=== PATIENT | male | born 1960 | race Caucasian/White ===

== ENCOUNTER → 2017-05-22 13:34 | Outpatient (CLI) | payer BC, SELFPAY | PROVIDERS: PCP Family Medicine; Visit Provider Family Medicine | DX: R60.0 Localized edema (principal) | CPT/HCPCS: 93005 ==

== ENCOUNTER → 2017-05-29 12:00 | Outpatient (CLI) | payer BC, SELFPAY ==
--- NOTE | 2017-05-29 12:06 | NM_ITS ---
History and Indications: Obesity, hypertension, hyperlipidemia, family history and shortness of breath Procedure: Patient exercised on Evan protocol 6 minutes, resting heart rate was 69 bpm resting blood pressure 166/87, with exercise maximum heart rate achieved was 142 bpm which is equal to 86% of the maximum predicted heart rate and a blood pressure was 244 /100. Test was started due to shortness of breath patient denied any complained of chest pain, patient has adequate exercise capacity achieved 7mets of workload on treadmill, the blood pressure response to exercise was hypertensive. Electrocardiogram: Resting electrocardiogram showed sinus rhythm, with exercise, there is less than 1.[address] segment depression noted from the baseline EKG. The EKG portion of the exercise Myoview is negative for ischemia. Cardiac stress and resting SPECT images: Cardiac stress and rest SPECT images were obtained using technetium 99 Myoview 10.3 mCi at rest and 31.7 mCi at stress, gated SPECT further analysis of segmental wall motion and calculation of the ejection fraction also done. Cardiac stress and rest images show mild decreased tracer activity in the wall With normal contractility in the gated SPECT is likely secondary to soft tissue attenuation, no reversible ischemia seen. Computer derived ejection fraction is 48% with no obvious regional wall motion abnormality, right ventricle is mildly enlarged with normal contractility. Conclusion: 1. The EKG portion of the exercise Myoview is negative for ischemia patient has adequate exercise capacity achieved 7mets of workload on treadmill, the blood pressure response to exercise was hypertensive, there was no exercise-induced chest discomfort. 2. No obvious scintigraphic evidence of reversible ischemia seen, computer derived ejection fraction is 48% with no obvious regional wall motion abnormality, right ventricle is mildly enlarged with normal contractility.
--- NOTE | 2017-05-29 14:52 | HMH.ITSHM ---
inhaler amlodipine furosemide omeprazole prvastatin lisinopril asa' vit stool softner bystolic
== END ==
PROVIDERS: Family Provider Family Medicine; PCP Family Medicine; Visit Provider Family Medicine
DX: R07.9 Chest pain, unspecified (principal)
CPT/HCPCS: 78452; 93017; A9502

== ENCOUNTER → 2017-06-24 15:10 | Outpatient (CLI) | payer BC, SELFPAY ==
--- NOTE | 2017-06-24 | CA_ITS ---
PROCEDURE: 2-D M-mode and color Doppler study INDICATIONS FOR THE TEST: Chest pain COPD Heart Murmur Tobacco Smokingex Palpitations Fatigue+ Syncope Edema+ Hypertension+Diabetes Mellitus Rheumatic Fever SOB+DIA Obesity Hyperlipidemia+ Family History HD+ Additional History PATIENT INFORMATION HEIGHT: 67 WEIGHT: 280 GENDER: Male B/P: 150/90 2-D/M-MODE INTERPRETATION: 2-D MEASUREMENTS OBSERVED VALUES IN CMS Right Ventricular Dimension (RVDd) 3.0 Interventricular Septum (Thickness)(IVsd) 1.3 Left Ventricular Internal Dimensions(LVIDd) 4.9 Left Ventricular Posterior Wall (Thickness)(LVPWd) 1.3 Aortic Root 3.1 Aortic Cusp Separation 2.2 Left Atrial Dimensions (LAD) 4.3 2D 1. Left atrium is mildly enlarged, left ventricle is normal size, there is mild concentric left ventricular hypertrophy, visually estimated ejection fraction 55% with no obvious regional wall motion abnormality. 2. The right atrium and right ventricle are mildly enlarged with normal contractility. 3. The aortic valve is minimally thickened and fibrosed. 4. The mitral and tricuspid valve leaflets are minimally thickened. 5. The pulmonic valve is poorly visualized. 6. No significant pericardial effusion noted. DOPPLER INTERROGATION: Doppler interrogation of the aortic, mitral and tricuspid valvular presence of mild mitral and tricuspid regurgitation, tricuspid and jet velocity is insufficient for calculation of the right ventricular systolic pressure, grade 1 diastolic dysfunction seen with tissue Doppler evidence of raised left atrial pressure. CONCLUSION: 1. Mildly enlarged left atrium, normal left ventricular size, mild concentric left ventricular hypertrophy, visually estimated ejection fraction 55% with no obvious regional wall motion abnormality, grade 1 diastolic dysfunction seen with tissue Doppler evidence of raised left atrial pressure. 2. Mildly enlarged right ventricle with normal contractility. 3. Mild mitral and tricuspid regurgitation 4. No significant pericardial effusion noted.
== END ==
PROVIDERS: Family Provider Family Medicine; PCP Family Medicine; Visit Provider Family Medicine
DX: R94.30 Abnormal result of cardiovascular function study, unspecified (principal)
CPT/HCPCS: 93306

== ENCOUNTER → 2018-01-15 07:32 | Outpatient (CLI) | payer BC, SELFPAY ==
--- NOTE | 2018-01-15 08:06 | AS_ITS ---
Renal Arterial Duplex Indications: 405.91 Unspecified renovascular hypertension. IMPRESSIONS 1. The right renal artery appears normal. 2. The left renal artery appears normal. Complete renal arterial duplex. Duplex scan and Doppler flow study including spectral analysis, color and aguiar scale imaging. Height: Height: 170.2cm. Height: 67in. Weight: Weight: 124.7kg. Weight: 274.4lb. Body mass index: BMI: 43.1kg/m^2. Body surface area: BSA: 2.49m^2. Location: Vascular laboratory. Patient status: Outpatient. Findings: Proximal abd. aorta diameter: 1.7cm. Cyst in the right lower pole cortex. Dimensions: 2cm (L)x 2cm (AP D). Tables: Arterial flow: + +--------+--------+ Location V sys V ed + +--------+--------+ Right renal - proximal 149cm/s 50.7cm/s + +--------+--------+ Right renal - mid 102cm/s 44.1cm/s + +--------+--------+ Right renal - distal 94.7cm/s 31.6cm/s + +--------+--------+ Left renal - proximal 123cm/s 34.5cm/s + +--------+--------+ Left renal - mid 151cm/s 47.4cm/s + +--------+--------+ Left renal - distal 89.7cm/s 25.1cm/s + +--------+--------+ Rt renal-origin 137cm/s 44.3cm/s + +--------+--------+ Lt renal-origin 116cm/s 26.2cm/s + +--------+--------+ Abdominal aorta-prox 121cm/s -------- + +--------+--------+ Renal anatomy: + +------+-----+ Left Right + +------+-----+ Long axis 13.2cm 15cm + +------+-----+ Short axis 8.1cm 7.1cm + +------+-----+ Velocity ratios: + +-----+ V sys + +-----+ Right renal/aortic 1.2 + +-----+ Left renal/aortic 1.2 + +-----+ (Report amended ) Electronically signed by: Adan Prabhakar [id number]
== END ==
PROVIDERS: PCP Family Medicine; Visit Provider Emergency Medicine
DX: I10 Essential (primary) hypertension (principal)
CPT/HCPCS: 93976

== ENCOUNTER → 2018-01-19 15:35 | Outpatient (CLI) | payer BC, SELFPAY | PROVIDERS: PCP Family Medicine; Visit Provider Emergency Medicine | DX: G47.33 Obstructive sleep apnea (adult) (pediatric) (principal); I10 Essential (primary) hypertension; R06.83 Snoring | CPT/HCPCS: 95806 ==

== ENCOUNTER → 2018-02-03 08:25 | Outpatient (CLI) | payer BC, SELFPAY ==
--- NOTE | 2018-02-03 08:28 | MR_ITS ---
MR shoulder LT wo con HISTORY:Left shoulder pain with weakness in the arm ITS.REASON: LEFT SHOULDER PAIN ORDERING PHYSICIAN: Anitha Coello MD PATIENT AGE: 57 years Comparison: None TECHNIQUE: Standard multiplanar multiecho sequences are performed without contrast. FINDINGS: There are bony hypertrophic changes of the acromioclavicular joint with low-lying acromion with resultant subacromial stenosis of approximately 5 mm. The acromioclavicular hypertrophy also causes some impingement upon the musculotendinous junction of the supraspinatus tendon. There is a full-thickness tear involving the distal aspect of the supraspinatus tendon at the insertion on the greater tuberosity. The musculotendinous fibers do not appear retracted. Some fibers may be intact within posterior aspect of the supraspinatus tendon. That part of the tendon fibers thickened with increased T2 signal. The infraspinatus tendon appears intact with some mild tendinopathy/tendinosis. The teres minor tendon is unremarkable. There is also thickening with increased T2 signal of the subscapularis tendon. Bicipital tendon is in place. No obvious labral tear. IMPRESSION: 1. Full-thickness tear involving the anterior and distal aspect of the supraspinatus tendon without musculotendinous retraction. 2. Acromioclavicular arthropathy with subacromial stenosis. 3. Tendinopathy/tendinosis of the subscapularis and infraspinatus tendons.
== END ==
PROVIDERS: PCP Family Medicine; Visit Provider Emergency Medicine
DX: M25.512 Pain in left shoulder (principal)
CPT/HCPCS: 73221

== ENCOUNTER → 2018-02-16 14:56 | Outpatient (CLI) | payer BC, SELFPAY ==
--- NOTE | 2018-02-16 14:59 | XR_ITS ---
XR shoulder LT min 2V Ordering Physician: Huyen Gaspar MD Patient Age: 57 years: Male HISTORY: ITS.REASON: Lt shoulder tearRCT TECHNIQUE: 4 views left shoulder. AP, Y view and axillary COMPARISON :MRI shoulder 02/03/2018 FINDINGS . The humeral head and neck intact with some only note of some minor degenerative, slight irregularity and slight accentuated minor focal concavity the superior base of the humeral head, which may reflect impingement. This Is just beneath the tip of acromion and may correspond with the rotator cuff tear seen on recent MR. The glenohumeral joint is intact. Subtle downward sloping of the acromion on the frontal projection. Scapula unremarkable. IMPRESSION: Left shoulder intact with minor observations.. Glenohumeral joint is intact. Noted Minor observations as in text- which may reflect subtle impingement changes upon superior base of humeral head
== END ==
PROVIDERS: PCP Family Medicine; Visit Provider Orthopaedic Surgery
DX: M25.512 Pain in left shoulder (principal)
CPT/HCPCS: 73030

== ENCOUNTER → 2018-03-20 07:24 | Outpatient (CLI) | payer BC, SELFPAY ==
--- NOTE | 2018-03-20 07:39 | XR_ITS ---
XR chest 2V HISTORY: ITS.REASON: HYPERTENSION ORDERING PHYSICIAN: Huyen Gaspar MD PATIENT AGE: 57 years COMPARISON: None available FINDINGS: The cardiomediastinal silhouette and pulmonary vascularity are within normal limits. The lungs are clear without infiltrates, suspicious nodules, or pleural effusions. No acute bony abnormalities. IMPRESSION: Negative chest, no acute finding
[2018-03-20 08:19] LABS: Basophils # 0.1 K/mm3 (0-0.2); Basophils % 0.7 % (0.1-2.0); Eosinophils # 0.2 K/mm3 (0.0-0.4); Hematocrit 43.8 % (42.0-52.0); Hemoglobin 14.9 g/dL (14.1-18.0); Lymphocytes # 1.8 K/mm3 (0.7-4.5); Lymphocytes % 23.1 % (10-50); Mean Corpuscular Hemoglobin 30.6 pg (27.0-31.2); Mean Platelet Volume 7.2 fl (7.4-10.4); Monocytes # 0.7 K/mm3 (0.1-1.0); Monocytes % 8.4 % (1.7-9.3); Neutrophils # 5.3 K/mm3 (1.8-7.8); Neutrophils % 65.9 % (37.0-80.0); Platelet Count 281 K/mm3 (142-424); Red Blood Count 4.87 M/mm3 (4.60-6.20)
[2018-03-20 08:22] LABS: Prothrombin Time 10.3 seconds (9.4-11.8)
[2018-03-20 09:16] LABS: Alanine Aminotransferase 35 U/L (12-78); Albumin Level 3.7 gm/dL (3.4-5.0); Albumin/Globulin Ratio 1.3 (1.1-1.8); Alkaline Phosphatase 87 U/L (46-116); Anion Gap 12.9 mEq/L (5-15); Aspartate Amino Transferase 21 U/L (15-37); Bilirubin,Total 0.5 mg/dL (0.2-1.0); Blood Urea Nitrogen 12 mg/dL (7-18); Calcium 8.7 mg/dL (8.5-10.1); Carbon Dioxide 28 mmol/L (21.0-32.0); Chloride 102 mmol/L (98-107); Creatinine,Serum 0.71 mg/dL (0.70-1.30); Estimated Glomerular Filt Rate 115 ml/min (>60); GFR (African American) 139 ML/MIN (>60); Globulin 2.9 gm/dl (1.3-3.2); Glucose 105 mg/dL (74-106); Potassium 3.9 mmoL/L (3.5-5.1); Sodium 139 mmol/L (136-145); Total Protein,Serum 6.6 gm/dL (6.4-8.2)
== END ==
PROVIDERS: Visit Provider Orthopaedic Surgery
DX: Z01.818 Encounter for other preprocedural examination (principal); M75.102 Unspecified rotator cuff tear or rupture of left shoulder, not specified as traumatic
CPT/HCPCS: 36415; 71046; 80053; 85025; 85610; 93005

== ENCOUNTER → 2018-07-02 14:33 | Outpatient (CLI) | payer BC, SELFPAY ==
--- NOTE | 2018-07-02 14:36 | XR_ITS ---
XR shoulder LT min 2V HISTORY: Pain, follow-up surgery ITS.REASON: lt shoulder sx follow up DOS: 03/29/18 ORDERING PHYSICIAN: Huyen Gaspar MD PATIENT AGE: 58 years Comparison: 02/16/2018 FINDINGS: There is good alignment. There are 2 anchor screws along the humeral head. No acute fracture or dislocation. IMPRESSION: Status post shoulder surgery with no acute finding
== END ==
PROVIDERS: PCP Family Medicine; Visit Provider Orthopaedic Surgery
DX: M75.100 Unspecified rotator cuff tear or rupture of unspecified shoulder, not specified as traumatic (principal)
CPT/HCPCS: 73030

== ENCOUNTER 2018-07-29 15:00 | Outpatient (RCR) | payer BC, SELFPAY ==
--- NOTE | 2018-04-09 16:18 | HMH.OTOPEV ---
OT Inpatient Evaluation Rehab OT Outpatient Eval Start: 04/09/18 15:42 Freq: Status: Active Protocol: Document 04/09/18 15:42 RMARSHALL (Rec: [facility]/09/18 16:[id number] Electronically Signed By Anais Davis OT 04/09/18 15:42 Outpatient Therapy Subjective History Subjective History Pt is seen this date for initial OT evaluation for left shoulder. Pt reports over the last few years his left shoulder has become more painful while using the joint. Pt does not recall a specific injury causing the pain to begin. Pt required surgery on 03/29/18; arthroscopy consisted of biceps tenotomy, SAD, and RTC repair. Today patient presents with minimal pain at left shoulder, but does have decreased PROM/strength. Pt will continue to be seen twice a week in order to regain functional use of LUE. L Shoulder AROM STG Flex: 100 Abd: 110 ER: 55 IR: 55 L shoulder AROM LTG Flex: 160 Abd: 165 ER: 80 IR: 80 Chief Complaint Pain Weakness Symptom Type Ache Throb Sharp Symptoms Relieved By Nothing Symptoms Aggravated By Physical Activity Prior Functional Limitations None Current Functional Limitations Reaching Lifting Sleeping Recreation Activity Symptom Description Intermittent Activity Dependent Level of pain today (0-10) 3 Pain scale - at its best (0-10) 1 Pain scale - at its worst (0-10) 5 Shoulder/Elbow Eval Shoulder Objective Measurements Shoulder ROM Left Shoulder ROM Limitations Muscle Weakness Pain Shoulder Abduction Active Range of 60 degres Motion (degrees) Shoulder Abduction Passive Range of 110 degrees Motion (degrees) Shoulder
--- NOTE | 2018-06-24 16:08 | HMH.RHREAS ---
Rehab Reassessment Rehab OP Re-assessment Start: 06/24/18 15:56 Freq: Status: Active Protocol: Document 06/24/18 15:56 RMRAMAN (Rec: 06/24/18 16:08 RMARSHALL [id number]) Electronically Signed By Anais Davis OT 06/24/18 15:56 Rehab Re-assessment Subjective Subjective I have come a long way. Objective Objective Notes Pt continues to be seen once a week in order to engage in skilled OT sessions. Pt also engages in AROM and AAROM exercises; strengthening is being added. Pt is passively ranged in flexion, abduction, ER, and IR every time as well. Pt receives modalities such as e-stim in order to reduce pain/inflammation. Assessment Progress Assessment Progressing as Expected Assessment Notes Pt has demonstrated great improvement since initial evaluation. Pt's AROM and strength have both improved. Pt's pain has also decreased significantly. Pt has returned to work with restrictions. Pt is is consistent about attending every therapy session and completing HEP at home. Current L shoulder Flex: 145 degrees Abd: 135 degrees ER: 80 degrees IR: 65 degrees Current L shoulder MMT Flex: 4+ Abd: 4+ ER: 4+ IR: 4+ Patient goals met Pt has met all STG's Goals Not Met LTG Revised Goals Left shoulder AROM Goals Flex: 170 Abd: 170 ER: 80 IR: 80 L shoulder MMT Goals Flex: 5 Abd: 5 ER: 5 IR: 5 Plan Plan Continue with OT plan of care at this time Frequency of Therapy 1x a week Duration of therapy 4-6 more weeks Time and
== END 2018-07-29 15:05 | disposition home or self-care (01) ==
LOC: OT 15:00
PROVIDERS: Visit Provider Orthopaedic Surgery
DX: M75.122 Complete rotator cuff tear or rupture of left shoulder, not specified as traumatic (principal); M75.22 Bicipital tendinitis, left shoulder
CPT/HCPCS: 97014; 97110; 97140; 97164; 97166; G0283

== ENCOUNTER 2019-09-19 14:41 | Emergency (ER) | payer OTHER, SELFPAY ==
[2019-09-19 14:48] VITALS: BP 136/82; PULSE 71; RESP 16; TEMP 36.8; O2SAT 99; BMI 43.8
[2019-09-19 15:12] VITALS: BP 136/82; PULSE 71; RESP 16; TEMP 36.8; O2SAT 99; BMI 43.9
--- NOTE | 2019-09-19 16:23 | HMH.EDUTC ---
[facility] [place] Clinical Impression: Finger laceration Qualifiers: Encounter type: initial encounter Finger: thumb Damage to nail status: without damage Foreign body presence: without foreign body Laterality: left Qualified Code(s): S61.012A - Laceration without foreign body of left thumb without damage to nail, initial encounter Disposition: Home, Self-Care Condition on Discharge: Good Instructions: How to Care for a Laceration After Repair, DI for Laceration Repair, DI for Laceration Repair -- Simple Additional Instructions: You have required stitches today. Please read the following instructions so you know how to care for them: 1. Keep wound area dry for the first 24 hours. 2 May clean gently with mild soap and water, after 48 hours to prevent crusting over suture knots. 3. You may shower if your provider gives permission but do not take a bath until the skin is healed.. 4. Never leave a wet dressing or Band-Aid on your stitches as this allows bacteria to reach the area and may cause infection. Band-aids can cause the wound to sweat and not recommended to wear for long periods of time Watch for signs of infection: Increasing redness, tenderness or warmth around the suture site Unusual swelling around the site Appearance of pus around each suture or any red streaks Fever If you develop any of the above signs or symptoms of infection, Follow up with Family Physician immediately 5. Suture removal in __10-12__days 6. Return to [facility] or follow up with family doctor for removal. This can be done by any medical provider during regular hours on Thursday through Thursday, by appointment. Prescriptions: Amoxicillin/Potassium Clav [Augmentin 875-125 Tablet] 1 tab PO Q12H 7 Days #14 tab Transmission Status: Received by [id number] Referrals: PCP,No [Primary Care Provider] - As needed Forms: Work/School Release Time of Disposition: 16:27 Medical Decision Making - Micah Inquiry Pt receiving controlled substance: No Micah was queried for this patient: No Vital Signs: 09/19/19 14:48 09/19/19 15:12 09/19/19 16:28 Temperature 98.3 F 98.3 F 98.3 F Temperature Source Oral Oral Pulse Rate 71 Pulse Rate [Right Radial] 71 71 Respiratory Rate 16 16 16 Blood Pressure 136/82 Blood Pressure [Right Arm] 136/82 136/82 Blood Pressure Mean [Right Arm] 100 100 Blood Pressure Source [Right Arm] Automatic Cuff Automatic Cuff Blood Pressure Position [Right Arm] Sitting Sitting 02 Sat by Pulse Oximetry 99 99 Oxygen Delivery Method Room Air Room Air - Reevaluation(s) Time: 16:28 Reevaluation #1: Patient reports tetanus up to date [facility] - General Stated complaint: oa 09/19/19 cut left thumb Time Seen by Provider: 09/19/19 15:50 Mode of Arrival: Ambulatory Source of Information: Patient Limitations: No Limitations Description of Symptoms (Recalled from Triage Doc. 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 LAST TETANUS SHOT WAS IN 2016 HEENT Symptoms (Recalled from RN notes): No Resp Symptoms (Recalled from RN notes): No Skin Symptoms (Recalled from RN notes): Yes MS Symptoms (Recalled from RN notes): No Functional Status (Recalled from RN notes): WNL - History of Present Illness Provider Complaint: Patient states that he was at work and was changing something and the roller door came down and pinched the pad his left thumb States that he looked and noticed a flap like laceration to his left thumb States that he immediately applied pressure and told them he cut his thumb and they sent him up to have it checked States that last tetanus was 4 yr ago - Related Data Home Medications Medication Instructions Recorded Confirmed Gemfibrozil 600 mg PO DAILY 01/10/18 05/20/19 Pravastatin Sodium [Pravachol 40mg 40 mg PO DAILY 01/10/18 05/20/19 Tablet] Citalopram Hydrobromide 10 mg PO DAILY 03/26/18 05/20/19 [Citalopr
[2019-09-19 16:28] VITALS: BP 136/82; PULSE 71; RESP 16; TEMP 36.8; O2SAT 99
== END 2019-09-19 16:34 | disposition home or self-care (01) ==
LOC: ER 14:56 → UTC 14:57
PROVIDERS: Emergency Provider Nurse Practitioner
DX: S61.012A Laceration without foreign body of left thumb without damage to nail, initial encounter (principal); W30.89XA Contact with other specified agricultural machinery, initial encounter; Y92.69 Other specified industrial and construction area as the place of occurrence of the external cause; Y99.0 Civilian activity done for income or pay
CPT/HCPCS: 12001; 99201

== ENCOUNTER → 2020-02-06 10:31 | Outpatient (CLI) | payer BC, SELFPAY ==
[2020-02-06 11:48] LABS: Basophils # 0.1 K/mm3 (0-0.2); Basophils % 0.9 % (0.1-2.0); Eosinophils # 0.2 K/mm3 (0.0-0.4); Eosinophils % 2.6 % (0.1-12.0); Hematocrit 46.5 % (42.0-52.0); Hemoglobin 15.8 g/dL (14.1-18.0); Lymphocytes # 2.5 K/mm3 (0.7-4.5); Mean Corpuscular Hemoglobin 31.5 pg (27.0-31.2); Mean Corpuscular Volume 92.5 fl (80-94); Mean Platelet Volume 7.9 fl (7.4-10.4); Monocytes # 1.1 K/mm3 (0.1-1.0); Monocytes % 14.3 % (1.7-9.3); Neutrophils # 3.9 K/mm3 (1.8-7.8); Neutrophils % 50.1 % (37.0-80.0); Platelet Count 315 K/mm3 (142-424); Red Blood Count 5.02 M/mm3 (4.60-6.20); Red Cell Distribution Width 13.7 % (11.5-17.5); White Blood Count 7.7 K/mm3 (4.8-10.8)
[2020-02-07 12:35] LABS: Covid-19 Nasal PCR Sendout Lex Positive
== END ==
PROVIDERS: PCP Family Medicine; Visit Provider Nurse Practitioner Family
DX: Z20.828 Contact with and (suspected) exposure to other viral communicable diseases (principal); U07.1 COVID-19
CPT/HCPCS: 36415; 85025; U0004

== ENCOUNTER → 2020-06-19 08:36 | Outpatient (CLI) | payer BC, SELFPAY ==
[2020-06-19 09:56] LABS: Coronavirus 19 IgG Antibody Positive (Negative); Coronavirus 19 IgM Antibody Negative (Negative)
== END ==
PROVIDERS: Visit Provider Surgery
DX: Z01.812 Encounter for preprocedural laboratory examination (principal); Z20.822 Contact with and (suspected) exposure to COVID-19; Z12.11 Encounter for screening for malignant neoplasm of colon; Z86.010 Personal history of colon polyps
CPT/HCPCS: 36415; 86328

== ENCOUNTER 2020-06-20 07:36 | Day surgery (SDC) | payer BC, SELFPAY ==
[2020-06-14 14:10] VITALS: BMI 45.4
[2020-06-20 07:56] VITALS: BP 145/79; PULSE 73; RESP 18; TEMP 36.6; O2SAT 95
[2020-06-20 08:43] VITALS: O2SAT 95
--- NOTE | 2020-06-20 08:54 | HMH.ANESCL ---
[facility] Anesthesia Checklist - Patient Identification Patient Identification: Arm Band - Structural Data Admitted From: Home Planned Operative Procedure/s: colonoscopy Consent for Planned Operative Procedure(s) Verified: Yes Verified Documents: Surgical Consent, History and Physical - NPO Status Verified Time NPO: 00:00 - Additional verifications Anesthesia Reactions: No Hx Blood Transfusions: No Blood Transfusion Reaction: No - Airway Assessment C-Spine Mobility Assessed: Yes (mp2) TMJ Mobility Assessed: Yes Dentition: Good Dentition - Neurological Assessment Level of Consciousness: Awake, Alert - Anesthesia Plan Anesthesia Risk discussed: Yes Anesthesia Plan: Verified ASA Class: III Anesthesia Type: MAC [facility] History I have reviewed the patient's past medical history: Yes Medical History: Reports:: Gastroesophageal Reflux Disease(GERD), Hyperlipidemia, Hypertension, Lung Disease (nya-cpap hs) Denies:: Cancer, Diabetes Mellitus Type 1, Diabetes Mellitus Type 2, Internal Pacemaker, MRSA, Seizures *Have you ever received a pneumonia vaccine?: Yes *Have you received a flu vaccine this season?: Yes Other Medical History: Reports: Other. Denies: Blood Transfusion Reaction Anesthesia experience/problems:: nac Laterality Cases: Left: Arthroscopy Shoulder Other Surgeries: Yes: Colonoscopy, Other. No: Pacemaker Amputation: No Fractures: Yes - *Social History Last grade of school completed: High school graduate Smoking Status: Never smoker Alcohol Intake: never Alcohol Intake Frequency:: holidays/special occasions only Substance Use Type: denies use *Occupational Status:: other Housing: house Household Members: spouse, family *Travel in the last 8 weeks: Inside the [facility] Family Hx:: Unable to obtain
[2020-06-20 09:35] VITALS: BP 136/79; PULSE 68; RESP 18; TEMP 36.8; O2SAT 94
--- NOTE | 2020-06-20 09:35 | P.PCN_ITS ---
- Procedure: Date: 06/20/20 Patient Date of :: 1960 Procedure Performed:: Total colonoscopy to the cecal valve with polypectomy Indications:: Patient presents for follow-up colonoscopy. He underwent colonoscopy for rectal bleeding by Dr. Garrido in November 2006 when the patient was in his mid 40s and had several hyperplastic polyps removed. I had previously performed colonoscopy on 06/2015. At that time he had several polyps removed. He had tub ular adenoma in the cecum. He underwent follow-up surveillance colonoscopy 05/03/19 which revealed a tubular adenoma in the cecum, tubular adenoma in the distal transverse colon, and most notable a sessile ridge polyp at the splenic flexure which required injection of methylene blue to raise it and removal with hot snare. This was of an appreciable size measuring estimated 10 mm and returned as sessile serrated adenoma. Performing Provider:: Brian Bai MD Referring Provider:: Jayson Adame MD Sedation:: MAC sedation Procedure:: Patient was taken to endoscopy procedure room. He was positioned in lateral decubitus position. Adequate intravenous sedation was achieved with anesthesia titration of propofol. Variable stiffness Olympus colonoscope was inserted via the anus. It was advanced to the cecum with some minor difficulty due to redundancy and floppiness of the sigmoid colon. This required abdominal pressure. Within the cecum the ileocecal valve and appendiceal orifice were identified. Colonoscope was slowly withdrawn through the colon with careful surveillance. There were several diminutive polyps in the sigmoid colon which were removed with cold biopsy forceps. These were likely lymphoid aggregate or hyperplastic by appearance. In the sigmoid colon there was a small polyp removed with cold cutting snare. He had a few beginning sigmoid diverticuli. Retroflexion within the rectum revealed no evidence of any pathologic internal hemorrhoids. Colonoscope was withdrawn. Findings:: Diminutive sigmoid polyps Early sigmoid diverticulosis Recommendations:: Possible repeat colonoscopy 3 years pending pathology Complications:: None immediately apparent Estimated blood obtained (mL): 2
[2020-06-20 09:45] VITALS: BP 150/92; PULSE 72; RESP 18; O2SAT 92
[2020-06-20 10:01] VITALS: BP 152/91; PULSE 62; RESP 18; O2SAT 96
== END 2020-06-20 10:04 | disposition home or self-care (01) ==
LOC: OUTP 07:38
PROVIDERS: PCP Family Medicine; Visit Provider Surgery
PROC: 0DJD8ZZ Inspection of Lower Intestinal Tract, Via Natural or Artificial Opening Endoscopic (ICD-10-PCS; CPT 45385; principal; 2020-06-20 08:30)
DX: Z12.11 Encounter for screening for malignant neoplasm of colon (principal); K56.2 Volvulus; K63.5 Polyp of colon; K57.30 Diverticulosis of large intestine without perforation or abscess without bleeding; Z86.010 Personal history of colon polyps; K21.9 Gastro-esophageal reflux disease without esophagitis; E78.5 Hyperlipidemia, unspecified; I10 Essential (primary) hypertension; G47.33 Obstructive sleep apnea (adult) (pediatric); Z87.39 Personal history of other diseases of the musculoskeletal system and connective tissue; Z88.2 Allergy status to sulfonamides; Z79.899 Other long term (current) drug therapy
CPT/HCPCS: 45385; J2704

== ENCOUNTER → 2021-02-15 16:17 | Outpatient (CLI) | payer BC, SELFPAY ==
[2021-02-15 16:34] LABS: Adenovirus,PCR Not Detected (NotDetected); Bordetella Pertussis Not Detected (NotDetected); Chlamydophila Pneumoniae, PCR Not Detected (NotDetected); Coronavirus 19, PCR Not Detected (NotDetected); Coronavirus 229E Not Detected (NotDetected); Coronavirus NL63 Not Detected (NotDetected); Coronavirus OC43 Not Detected (NotDetected); Coronovirus HKU1,PCR Not Detected (NotDetected); Human Metapneumovirus Not Detected (NotDetected); Influenza A, PCR Not Detected (NotDetected); Influenza AH1, 2009 Not Detected (NotDetected); Influenza AH1, PCR Not Detected (NotDetected); Influenza AH3,PCR Not Detected (NotDetected); Influenza B, PCR Not Detected (NotDetected); Mycoplasma Pneumoniae, PCR Not Detected (NotDetected); Parainfluenza 1, PCR Not Detected (NotDetected); Parainfluenza 2, PCR Not Detected (NotDetected); Parainfluenza 3, PCR Not Detected (NotDetected); Parainfluenza 4, PCR Not Detected (NotDetected); Respiratory Syncytial Virus Not Detected (NotDetected); Rhinovirus/Enterovirus Not Detected (NotDetected)
== END ==
PROVIDERS: PCP Family Medicine; Visit Provider Family Medicine
DX: Z20.822 Contact with and (suspected) exposure to COVID-19 (principal)
CPT/HCPCS: 87581; 87632; 87798; C9803; U0003; U0005

== ENCOUNTER → 2021-10-16 08:44 | Outpatient (CLI) | payer BC, SELFPAY ==
--- NOTE | 2021-10-16 08:48 | XR_ITS ---
FINAL REPORT CLINICAL HISTORY: left shoulder pain COMPARISON: February 16, 2018 FINDINGS: LEFT SHOULDER Three views demonstrate no acute fracture or dislocation. There are interval postoperative changes from presumed rotator cuff repair. There are mild degenerative changes of the acromioclavicular and glenohumeral joints. The visualized bony structures are well aligned. No soft tissue abnormality is seen. IMPRESSION: Postoperative and degenerative changes as above. Reviewed, Interpreted and Dictated by Brian Lombardi III, MD Transcribed by Samia Camacho Authenticated and [facility]
== END ==
PROVIDERS: PCP Family Medicine; Visit Provider Physician Assistant Surgical
DX: M25.512 Pain in left shoulder (principal)
CPT/HCPCS: 73030

== ENCOUNTER → 2021-10-24 15:04 | Outpatient (CLI) | payer BC, SELFPAY ==
--- NOTE | 2021-10-24 15:04 | MR_ITS ---
PROCEDURE INFORMATION: Exam: MR Left Upper Extremity Joint Without Contrast; Shoulder Exam date and time: 10/24/2021 3:38 PM Age: 61 years old Clinical indication: Pain; Shoulder; Left; Prior surgery; Surgery date: 6+ months; Additional info: Shoulder pain. Prior shoulder surgery 3 years ago. Timblin pulling on anterior portion of shoulder while bowling. Weakness in arm. TECHNIQUE: Imaging protocol: Magnetic resonance imaging of the Left upper extremity without contrast. Exam focused on the shoulder. COMPARISON: [facility] MR shoulder LT wo con 02/03/2018 8:47 AM FINDINGS: Bones/joints: No acute fracture. Mild degenerative changes of acromioclavicular joint. No dislocation. Fluid: Small fluid within subscapular recess of glenohumeral joint. Trace fluid within subacromial-subdeltoid bursa. Glenoid labrum: No definite tear. Supraspinatus tendon: Mild intermediate T2 signal/susceptibility artifact within distal tendon. No full-thickness tear. Infraspinatus tendon: Mild intermediate T2 signal/susceptibility artifact within distal tendon. No full-thickness tear. Subscapularis tendon: Mild tendinosis. No definite tear. Teres minor tendon: No definite tear. Tendon of biceps brachii: Biceps tenodesis. Glenohumeral ligaments: Grossly intact. Muscles: Unremarkable. Soft tissues: Unremarkable. IMPRESSION: Postoperative changes. No full-thickness tear.
== END ==
PROVIDERS: PCP Family Medicine; Visit Provider Orthopaedic Surgery
DX: M25.512 Pain in left shoulder (principal); S49.92XA Unspecified injury of left shoulder and upper arm, initial encounter
CPT/HCPCS: 73221

== ENCOUNTER → 2022-06-11 16:57 | Outpatient (CLI) | payer BC, SELFPAY | PROVIDERS: PCP Family Medicine; Visit Provider Family Medicine | DX: Z20.822 Contact with and (suspected) exposure to COVID-19 (principal) | CPT/HCPCS: C9803; U0003; U0005 ==

== ENCOUNTER 2022-08-15 07:23 | Day surgery (SDC) | payer BC, SELFPAY ==
[2022-08-15 07:53] VITALS: BP 153/84; PULSE 76; RESP 18; TEMP 36.1; O2SAT 98
--- NOTE | 2022-08-15 07:56 | EXP.GEN.HP ---
HPI HPI HPI: Patient presents for colonoscopy. He was seen in the office as a referral for follow-up from Dr. Adame for rectal bleeding.? He is a 61-year-old male whom I have seen in the past for colonoscopies.? He had undergone colonoscopy by Dr. Garrido in November 2006 when the patient was in his mid 40s for rectal bleeding and had hyperplastic polyps removed.? I did colonoscopy on 06/2015 and he had several polyps including tubular adenoma in the cecum.? Follow-up surveillance colonoscopy on 05/03/2019 revealed tubular adenoma in the cecum, tubular adenoma in the distal transverse colon, and most notable sessile ridge polyp at the splenic flexure which required injection of methylene blue to raise and removed with hot snare.? This returned as sessile serrated adenoma.? He also had some diverticulosis.? I did colonoscopy on 06/20/2020 and he had some diverticulosis with 4 distal colon hyperplastic polyps removed.? Careful surveillance of the area of the previous sessile ridge polyp was unremarkable at that time. He now presents to the office stating that he is having some bleeding from the exit end .? He states that over the past several weeks he has had several episodes of painless rectal bleeding.? He describes it as thin the Lance-Aid appearance.? 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 Dr. Adame started him on some probiotics, fiber stool softener, and hemorrhoid cream.? Patient has no pain but does describe some itching and burning. [facility] Disclaimer: The information contained in this section may have been updated after the patient was seen, as this information can be updated by other users. Medical History (Updated 08/15/22 @ 07:53 by Laurita Herrera RN) Hyperlipidemia Hypertension, essential Hypokalemia Sleep apnea Surgical History (Updated 08/15/22 @ 07:53 by Laurita Herrera RN) History of ankle surgery History of colonoscopy History of shoulder surgery Family History (Updated 08/15/22 @ 07:53 by Laurita Herrera RN) Family history of cancer Social History (Updated 08/15/22 @ 07:53 by Laurita Herrera RN) Smoking Status: Never smoker second hand exposure: Yes alcohol intake: current substance use type: denies use current occupational status: other Travel in the last 8 weeks: None household members: spouse and family housing: house current occupation: [employer] current occupational exposures/hazards: No caffeine: Yes Meds Home Medications and Allergies Home Medications Medication Instructions Recorded Confirmed Type gemfibrozil 600 mg tablet 600 mg PO DAILY Cholesterol 01/10/18 08/15/22 History pravastatin 40 mg tablet 40 mg PO DAILY Cholesterol 01/10/18 08/15/22 History citalopram 10 mg tablet 10 mg PO DAILY mood 03/26/18 08/15/22 History clonidine HCl 0.1 mg tablet 0.1 mg PO BID blood pressure 03/26/18 08/15/22 History furosemide 40 mg tablet 40 mg PO DAILY Fluid 03/26/18 08/15/22 History triamterene 37.5 1 tab PO DAILY blood pressure 03/26/18 08/15/22 History mg-hydrochlorothiazide 25 mg tablet aspirin 81 mg tablet,delayed 81 mg PO DAILY Blood thinner 03/29/18 08/15/22 History release omeprazole 20 mg capsule,delayed 20 mg PO DAILY STOMACH 03/29/18 08/15/22 History release potassium chloride 10 mEq 20 meq PO DAILY Supplement 08/02/18 08/15/22 History capsule,extended release carvedilol 6.25 mg tablet 12.5 mg PO BID Heart disease 06/01/20 08/15/22 History fluticasone propionate 50 1 spray intranasal DAILY allergies 06/01/20 08/15/22 History mcg/actuation nasal spray,suspension (Flonase Allergy Relief) sodium,potassium,mag sulfates 17.5 See Rx Instructions PO .COMPLEX 08/15/22 08/15/22 History gram-3.13 gram-1.6 gram oral soln bowel prep (Suprep Bowel Prep Kit) spironolactone 25 mg tablet 25 mg PO DAILY bp 08/15/22 08/15/22 History valsartan 320 mg tablet 320 mg PO DAILY BP 08/15/22 08/15/22 History New Prescriptions to Start
[2022-08-15 08:11] VITALS: O2SAT 98
--- NOTE | 2022-08-15 08:58 | HMH.SCOPE ---
Procedure: Date: 08/15/22 Patient Date of :: 1960 Procedure Performed:: Total colonoscopy with biopsies and polypectomy Indications:: Patient presents for colonoscopy.? He was seen in the office as a referral for follow-up from Dr. Adame for rectal bleeding.? He is a 61-year-old male whom I have seen in the past for colonoscopies.? He had undergone colonoscopy by Dr. Garrido in November 2006 when the patient was in his mid 40s for rectal bleeding and had hyperplastic polyps removed.? I did colonoscopy on 06/2015 and he had several polyps including tubular adenoma in the cecum.? Follow-up surveillance colonoscopy on 05/03/2019 revealed tubular adenoma in the cecum, tubular adenoma in the distal transverse colon, and most notable sessile ridge polyp at the splenic flexure which required injection of methylene blue to raise and removed with hot snare.? This returned as sessile serrated adenoma.? He also had some diverticulosis.? I did colonoscopy on 06/20/2020 and he had some diverticulosis with 4 distal colon hyperplastic polyps removed.? Careful surveillance of the area of the previous sessile ridge polyp was unremarkable at that time. He now presents to the office stating that he is having some bleeding from the exit end .? He states that over the past several weeks he has had several episodes of painless rectal bleeding.? He describes it as thin the Lance-Aid appearance.? 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 Dr. Adame started him on some probiotics, fiber stool softener, and hemorrhoid cream.? Patient has no pain but does describe some itching and burning and discomfort. He states that all of his symptoms are at the exit end . Performing Provider:: Brian Bai MD Referring Provider:: Jayson Adame Sedation:: MAC sedation Procedure:: Patient history was obtained and appropriate physical examination was performed. Patient's medications and allergies were reviewed. Informed consent was obtained after explaining the benefits, alternatives, and risks of the procedure including, but not limited to, bleeding, perforation, missed lesions, and adverse reaction to anesthesia medications. Patient was transported to endoscopy procedure room. Patient was connected to monitoring devices. Throughout the procedure the patient's blood pressure, pulse, and oxygen saturations were monitored continuously. Patient identification and planned procedure were verified by the staff. Patient was positioned in lateral decubitus position. Digital anorectal exam was performed. Variable stiffness Olympus colonoscope was inserted and advanced under direct visualization to the cecum. Adequacy of the colonic preparation was noted. The colonoscope was then slowly withdrawn while carefully examining the color, texture, anatomy, and integrity of the mucosoa circumferentially. Within the rectum retroflexion was performed. Colonoscope was then withdrawn. Findings:: Colonic preparation was good. There was a small cecal polyp removed with cold snare. Within the appendix there was likely a subtle polyp removed in a piecemeal fashion using biopsy forceps. There was some minor mucosal irregularity within the cecum which was biopsied. At the hepatic flexure there is a possible polyp which was biopsied with cold biopsy forceps. At the splenic flexure there were a couple of tiny diminutive polyps removed with biopsy forceps. There is some rectosigmoid diverticulosis. In the rectosigmoid region there is a hyperplastic appearing polyp removed with biopsy forceps. Retroflexion within the rectum revealed nonpathologic appearing internal hemorrhoids. There was a diminutive somewhat hyperplastic appearing polyp in the distal rectum removed with cold biopsy forceps. Inspection of the anal canal revealed intra-anal hemorrhoids with chronically thrombosed hemorrhoid in the right anterior lateral location. Impression: Polyps as noted above Diverticulosis I
[2022-08-15 09:03] VITALS: BP 159/75; PULSE 77; RESP 16; TEMP 37; O2SAT 93
[2022-08-15 09:13] VITALS: BP 166/64; PULSE 79; RESP 16; O2SAT 92
[2022-08-15 09:23] VITALS: BP 149/84; PULSE 68; RESP 16; O2SAT 100
[2022-08-15 09:33] VITALS: BP 152/68; PULSE 71; RESP 16; TEMP 36.7; O2SAT 100
--- NOTE | 2022-08-15 18:16 | EXP.ANES.CKL ---
[facility] Disclaimer: The information contained in this section may have been updated after the patient was seen, as this information can be updated by other users. Medical History (Updated 08/15/22 @ 07:53 by Laurita Herrera RN) Hyperlipidemia Hypertension, essential Hypokalemia Sleep apnea Surgical History (Updated 08/15/22 @ 07:53 by Laurita Herrera RN) History of ankle surgery History of colonoscopy History of shoulder surgery Family History (Updated 08/15/22 @ 07:53 by Laurita Herrera RN) Other Family history of cancer Social History (Updated 08/15/22 @ 07:53 by Laurita Herrera RN) Smoking Status: Never smoker second hand exposure: Yes alcohol intake: current substance use type: denies use current occupational status: other Travel in the last 8 weeks: None household members: spouse and family housing: house current occupation: [employer] current occupational exposures/hazards: No caffeine: Yes [facility] Anesthesia Checklist Patient Identification Patient Identification: Arm Band and Family Structural Data Admitted From: Home Planned Operative Procedure/s: colonoscopy Consent for Planned Operative Procedure(s) Verified: Yes NPO Status Verified Time NPO: 00:00 Additional verifications Patient : No Anesthesia Reactions: No Hx Blood Transfusions: No Blood Transfusion Reaction: No Cephalosporin Allergy: No Previous Colonoscopy: Yes Airway Assessment C-Spine Mobility Assessed: Yes TMJ Mobility Assessed: Yes Dentition: Edentulous Neurological Assessment Level of Consciousness: Awake, Alert, Appropriate and Follows Commands Numbness or tingling in extremities: No Anesthesia Plan Anesthesia Risk discussed: Yes ASA Class: II Anesthesia Type: MAC
== END 2022-08-15 09:33 | disposition home or self-care (01) ==
PROVIDERS: PCP Family Medicine; Visit Provider Surgery
PROC: 0DJD8ZZ Inspection of Lower Intestinal Tract, Via Natural or Artificial Opening Endoscopic (ICD-10-PCS; CPT 45385; principal; 2022-08-15 08:30)
DX: K62.5 Hemorrhage of anus and rectum (principal); D12.0 Benign neoplasm of cecum; D12.8 Benign neoplasm of rectum; K57.30 Diverticulosis of large intestine without perforation or abscess without bleeding; K64.8 Other hemorrhoids
CPT/HCPCS: 45385; 45380; J2704

== ENCOUNTER → 2023-01-26 18:00 | Outpatient (CLI) | payer BC, SELFPAY ==
--- NOTE | 2023-01-26 18:08 | XR_ITS ---
PROCEDURE INFORMATION: Exam: XR Right Shoulder Exam date and time: 01/26/2023 6:01 PM Age: 62 years old Clinical indication: Pain; Shoulder; Right; Additional info: Acute right shoulder pain, no known injury TECHNIQUE: Imaging protocol: Radiologic exam of the right shoulder. Views: 2 or more views. COMPARISON: CR CXR2V XR chest 2V 03/20/2018 7:42 AM FINDINGS: Bones/joints: Mild degenerative changes of the AC and glenohumeral joint. No acute fracture identified.. Soft tissues: Normal. IMPRESSION: No acute findings.
== END ==
PROVIDERS: PCP Family Medicine; Visit Provider Family Medicine
DX: M25.511 Pain in right shoulder (principal)
CPT/HCPCS: 73030

== ENCOUNTER 2023-09-07 12:06 | Outpatient (CLI) | payer BC, SELFPAY ==
[2023-09-08 16:23] LABS: PSA, Free 0.66 ng/mL; Prostate Specific Ag 4.3 ng/mL (0.0-4.0)
== END 2023-09-07 23:59 | disposition home or self-care (01) ==
LOC: LAB 12:09
PROVIDERS: PCP Family Medicine; Visit Provider Urology
DX: R97.20 Elevated prostate specific antigen [PSA] (principal)
CPT/HCPCS: 36415; 84153; 84154

== ENCOUNTER 2023-10-01 10:06 | Outpatient (POV) | payer BC, SELFPAY | END 2023-10-01 23:59 | disposition home or self-care (01) | LOC: SC 10:06 | PROVIDERS: Visit Provider Specialist/Technologist | DX: Z00.00 Encounter for general adult medical examination without abnormal findings (principal) ==

== ENCOUNTER 2023-10-20 06:47 | Outpatient (CLI) | payer BC, SELFPAY ==
[2023-10-20 07:25] LABS: Blood Urea Nitrogen 16 mg/dl (9-20); Estimated Glomerular Filt Rate 98 ml/min (>60); GFR (African American) 119 ML/MIN (>60)
--- NOTE | 2023-10-20 07:27 | MR_ITS ---
FINAL REPORT CLINICAL HISTORY: r/o acoustic neuroma; retrocochlear lesion. partial hearing loss in right ear. FINDINGS: Multiplanar MR imaging of the brain was performed without and with contrast. There are few tiny scattered foci of abnormal signal in the deep white matter bilaterally which are nonspecific. There is no evidence of intracranial hemorrhage or mass. No abnormal extra-axial fluid collection is seen. The ventricular size is within normal limits. There is no evidence of shift of the midline structures. The posterior fossa and brainstem have an unremarkable appearance. No area of abnormal restricted diffusion is identified. No abnormal contrast enhancement is seen. Normal major vessel vascular flow voids are noted. Dedicated imaging throughout the 7th nerve root complexes appear normal. There is mild abnormal signal in the mastoid air cells consistent with chronic mastoiditis. The paranasal sinuses are clear. IMPRESSION: Tiny few foci of abnormal signal in the deep white matter, probably due to chronic microvascular ischemia. Mild chronic mastoiditis. No evidence of acoustic neuroma Reviewed, Interpreted and Dictated by Latrell Guevara MD Transcribed by Linnea Torres Authenticated and . [facility]
[2023-10-20] MEDS: GADOTERIDOL INJ 20ML SYRINGE 20 ML IV (08:57)
[2023-10-20] MEDS: GADOTERIDOL INJ 10ML SYRINGE 6 ML IV (08:57)
[2023-10-20] MEDS: SODIUM CHLORIDE 0.9% 10ML SYR (RAD ONLY) 10 ML IV (08:57)
== END 2023-10-20 23:59 | disposition home or self-care (01) ==
PROVIDERS: PCP Family Medicine; Visit Provider Nurse Practitioner
DX: H90.3 Sensorineural hearing loss, bilateral (principal)
CPT/HCPCS: 36415; 70553; 82565; 84520; A9576

== ENCOUNTER 2023-10-28 08:37 | Outpatient (CLI) | payer BC, SELFPAY ==
--- NOTE | 2023-10-28 08:42 | NM_ITS ---
FINAL REPORT CLINICAL HISTORY: prostate cancer 8:50am 27.2 mci tc mdp FINDINGS: EXISTING RELEVANT IMAGING STUDIES: Lumbar spine images dated 10/28/2023 TECHNIQUE: The patient was injected with 27.2 mCi of technetium 99-MDP. 3 hour delayed images were obtained. FINDINGS: Renal and soft tissue uptake is unremarkable. There is mild increased activity in the lower lumbar spine, eccentric to the left, favored to be degenerative. No other abnormal tracer activity is identified to suggest occult fracture or metastatic disease. IMPRESSION: No findings to indicate metastatic bone disease. Reviewed, Interpreted and Dictated by Latrell Guevara MD Transcribed by Chayito Orellana Authenticated and [facility]
[2023-10-28] MEDS: SODIUM CHLORIDE 0.9% 10ML SYR (RAD ONLY) 10 ML IV (08:55)
[2023-10-28] MEDS: ISOTOPE MDP (BONE);1 DOSE VIAL IV (08:55)
--- NOTE | 2023-10-28 12:28 | XR_ITS ---
FINAL REPORT CLINICAL HISTORY: PROSTATE CA, HOT SPOT ON BONE SCAN FINDINGS: LUMBAR SPINE 2 views were obtained. There is no acute fracture. Vertebrae are normal height. There is no malalignment. There are mild hypertrophic changes in the facet joint at L5-S1. There is mild anterior osteophyte formation at L1-2 and L2-3. There is no soft tissue abnormality. IMPRESSION: Mild degenerative changes with no acute bony abnormality. Reviewed, Interpreted and Dictated by Latrell Guevara MD Transcribed by Chayito Orellana Authenticated and [facility]
== END 2023-10-28 23:59 | disposition home or self-care (01) ==
LOC: RAD 08:38
PROVIDERS: PCP Family Medicine; Visit Provider Urology
DX: C61 Malignant neoplasm of prostate (principal)
CPT/HCPCS: 72100; 78306; A9503

== ENCOUNTER 2023-11-06 09:29 | Outpatient (CLI) | payer BC, SELFPAY ==
[2023-11-06 10:12] LABS: Blood Urea Nitrogen 15 mg/dl (9-20); Estimated Glomerular Filt Rate 137 ml/min (>60); GFR (African American) 165 ML/MIN (>60)
== END 2023-11-06 23:59 | disposition home or self-care (01) ==
LOC: LAB 09:30
PROVIDERS: PCP Family Medicine; Visit Provider Urology
DX: H70.13 Chronic mastoiditis, bilateral (principal)
CPT/HCPCS: 36415; 82565; 84520

== ENCOUNTER 2023-11-13 09:59 | Outpatient (CLI) | payer BC, SELFPAY ==
--- NOTE | 2023-11-13 10:00 | CT_ITS ---
FINAL REPORT TECHNIQUE: Axial CT images of the abdomen and pelvis were obtained before and after the administration of IV contrast. This study was performed with techniques to keep radiation doses as low as reasonably achievable (ALARA). Individualized dose reduction techniques using automated exposure control or adjustment of mA and/or kV according to the patient's size were employed. CLINICAL HISTORY: prostate cancer COMPARISON: None FINDINGS: Abdomen: The lung bases are clear. The heart is normal in size. The liver has an unremarkable appearance, without evidence of mass or biliary duct dilatation. . The spleen is unremarkable. No adrenal masses present. The pancreas has an unremarkable appearance. There are small renal masses, favor small cysts. No follow-up is recommended as these are likely benign. The aorta is normal in caliber. Mild vascular calcification is present. There is no free fluid or adenopathy. There is a small umbilical hernia containing fat. Precontrast images demonstrate no evidence of nephrolithiasis. Pelvis: The appendix is normal in appearance. The urinary bladder is unremarkable. No inflammatory process is seen. There is no evidence of mass or adenopathy. There is no evidence of bowel obstruction. There is a small sclerotic focus in the body of L2, favor benign. IMPRESSION: No evidence of acute intra-abdominal process. Reviewed, Interpreted and Dictated by Brian Lombardi III, MD Transcribed by China Campos Authenticated and [facility]
[2023-11-13] MEDS: SODIUM CHLORIDE 0.9% 10ML SYR (RAD ONLY) 10 ML IV (10:49)
[2023-11-13] MEDS: IOPAMIDOL-370 (76%);100ML BOTTLE 75 ML IV (10:49)
== END 2023-11-13 23:59 | disposition home or self-care (01) ==
LOC: RAD 10:00
PROVIDERS: PCP Family Medicine; Visit Provider Urology
DX: C61 Malignant neoplasm of prostate (principal)
CPT/HCPCS: 74178; Q9967

== ENCOUNTER 2024-11-10 13:27 | Outpatient (CLI) | payer BC, SELFPAY ==
--- NOTE | 2024-11-10 13:28 | XR_ITS ---
FINAL REPORT CLINICAL HISTORY: right shoulder pain COMPARISON: None FINDINGS: 2 views of the right shoulder were obtained. There is no acute fracture or dislocation. There is mild AC joint degenerative disease. Soft tissues are unremarkable. IMPRESSION: Degenerative changes without acute osseous abnormality of the right shoulder. Reviewed, Interpreted and Dictated by Sandra Roe MD Transcribed by Rachel Iyer Authenticated and [facility]
== END 2024-11-10 23:59 | disposition home or self-care (01) ==
LOC: RAD 13:27
PROVIDERS: Visit Provider Physician Assistant
DX: M19.011 Primary osteoarthritis, right shoulder (principal)
CPT/HCPCS: 73030

== ENCOUNTER 2025-02-10 12:13 | Outpatient (CLI) | payer BC, SELFPAY ==
--- NOTE | 2025-02-10 12:27 | XR_ITS ---
FINAL REPORT CLINICAL HISTORY: SPRAIN OF ANTERIOR CRUCIATE COMPARISON: None FINDINGS: LEFT KNEE 3 views of the left knee were obtained. There is no acute fracture or dislocation. There is mild medial and lateral compartment joint space narrowing. There appear to be 4 well-circumscribed densities in the popliteal fossa measuring up to 6 mm individually, probably related to inclusion bodies within the popliteal cyst. Soft tissues are unremarkable. IMPRESSION: No acute bony abnormality. Chronic/degenerative changes. Reviewed, Interpreted and Dictated by Latrell Guevara MD Transcribed by Laurita Mg Authenticated and [facility][1]
== END 2025-02-10 23:59 | disposition home or self-care (01) ==
LOC: RAD 12:15
PROVIDERS: PCP Family Medicine; Visit Provider Family Medicine
DX: S83.512D Sprain of anterior cruciate ligament of left knee, subsequent encounter (principal); M17.12 Unilateral primary osteoarthritis, left knee; X58.XXXD Exposure to other specified factors, subsequent encounter
CPT/HCPCS: 73562

== ENCOUNTER 2025-02-14 12:42 | Outpatient (RCR) | payer BC, SELFPAY ==
--- NOTE | 2025-02-14 13:45 | HMH.PTOPEV ---
PT Evaluation Rehab PT Outpatient Evaluation Start: 02/14/25 12:44 Freq: Status: Active Protocol: Document 02/14/25 12:44 DAMASO (Rec: 02/14/25 13:44 DAMASO [id number]) E-signed By Vicky Pierre, PT Outpatient Therapy Subjective History Subjective History This is an initial PT evaluation for 64 y/o male who presents to PT with referral for ACL sprain. Pt had an x-ray on his left knee (Impression: No acute bony abnormality. Chronic/degenerative changes.). Pt has not had an MRI to confirm ACL injury. Pt reports he has been having knee pain since November after stepping off of a backhoe and hyperextending his left knee. Pt reports he started taking prescribed Meloxicam ~4 days ago and has not had much pain (-04/11). Pt reports since starting this medication he has noticed a significant improvement in his mobility and pain levels . Pt reports since his initial injury, he feels ~60% improved. Pt's symptoms are gradually improving. Pt denies any numbness/tingling. Pt denies any painful clicking/popping. Chief complaint: Left anterior-lateral knee pain. Under the knee cap EUSEBIO: Stepped down of a backhoe in Nov and hyperextended knee. Occupation: Retired. Hobbies: Bowling on and maintaining firewood for house. PMH: shoulder surgery, RC tear, prostate cancer (has a yearly check -up next week). New diagnosis of No cancer in past 12 months? Chief Complaint Pain Symptom Type Ache Symptoms Relieved By Rest/Positioning,Ice,Prescription Meds Symptoms Aggravated Standing,Physical Activity,Twisting,Walking,Lifting By Prior Functional None Limitations Current Functional Lifting,Housework,Recreation Activity,Walking,Stairs Limitations Symptom Description Intermittent Level of pain today 2 (0-10) Pain scale - at its 0 best (0-10) Pain scale - at its 9 worst (0-10) Hip/Knee Eval Gait Observation General Gait Pattern No Deviations/Normal,Antalgic Gait Observation Assistive Device Assistive Devices None / NA Palpation Tenderness left Knee Palpation None/Normal Finding MMT Hip Flexion Strength 4 Good Grade Hip Abduction 4 Good Strength Grade Hip Adduction 4 Good Strength Grade Hip Extension 4 Good Strength Grade Knee Extension 4- Good- Strength Grade Knee Flexion 4- Good- Strength Grade ROM Knee Extension 0 Active Range of Motion (degrees) Knee Flexion Active 120 Range of Motion ( degrees) Special Tests Boyer 90/90 Test ( Negative Left PCL) Knee Anterior Negative Left Sebas Test Knee Pivot Shift Negative Left Test Knee Posterior Sag ( Negative Left [place] Drawer) Test Knee Valgus Stress Negative Left Test Knee Varus Stress Negative Left Test Knee Clyde Test Negative Left Patella Apprehension Negative Left Test Patellar Grind Test Negative Left Lower Extremity Functional Index Activities Today, do you or would you have any difficulty at all with: a.Any of your usual No difficulty work, housework or school activities b. Your usual No difficulty hobbies, recreational or sporting activities c. Getting into or No difficulty out of the bath d. Walking between No difficulty rooms e. Putting on your No difficulty shoes or socks f. Squatting No difficulty g. Lifting an object No difficulty , like a bag of groceries from the floor h. Performing light No difficulty activities around your home i. Performing heavy No difficulty activities around your home j. Getting into or No difficulty out of a car k. Walking 2 blocks No difficulty l. Walking a mile Moderate difficulty m. Going up or down Moderate difficulty 10 stairs (about 1 flight of stairs) n. Standing for 1 Moderate difficulty hour o. Sitting for 1 No difficulty hour p. Running on even No difficulty ground q. Running on uneven Moderate difficulty ground r. Making sharp Moderate difficulty turns while running fast s. Hopping Moderate difficulty t. Rolling over in No difficulty bed LEFI Score Lower Extremity 68 Functional Index Score Miscellaneous Dx PT Eval Objective Objective Deep squat: Pt with good functional knee and hip ROM, even stance, and no pain reported. Outpatient Therapy Assessment Impairments Problems/ Impaired Strength,Impaired Walking,Impaired Standing, Impairmments Impaired Stair Climbing,Impaired Recreational Activities,Impaired Running,Impaired Jumping,Impaired Work Activities,Subjective C/O Pain Prognosis Rehab Potential Good Comment Pt presents with left knee pain and would benefit from skilled OP PT to improve LLE strength and return to PLOF. Pt did not demo any pain with knee palpation, special tests, AROM, or deep squat during initial evaluation. Pt's anterior drawer demo'd mild anterior laxity but without pain and similar to non-painful RLE. Clinical Impression Consistent with Yes Diagnosis PT Patient Goals PT Patient Goals PT Short Term In 4 weeks, pt will: Patient Goals 1) Demo L knee MMT of 4/5 globally to improve functioning. 2) Tolerate one mod intensity BLE endurance intervention for 10 min without increase in knee pain. 3) Improve LEFS to score of 72/80 to improve LE functioning. 4) Verbalize a 48-hour knee pain average of 3/10. 5) Verbalize compliance with home exercise program. PT Long-Term Patient In 8 weeks, pt will: Goals 1) Verbalize feeling at least 90% symptom improvement since IE. 2) Demo at least LLE MMT of 5/5 globally to improve functioning. 3) Negotiate 24 6 stair steps to improve community navigation. 4) Improve LEFS to score of 75/80 to improve LE functioning and return to PLOF 5) Verbalize a 48-hour knee pain average of 0-/10. 6) Verbalize compliance with home exercise program to improve self-maintenance of symptoms. 7) Demo 10 functional squats to demo functional knee AROM. 8) Stand for at least 1 hour without increase in knee pain to return to PLOF. 9) Verbalize ability to perform bowling tasks without increase in knee pain. Outpatient Therapy Plan of Care Treatment Plan May Include Therapeutic Exercise Yes Including Home Exercise Program Manual Therapy Yes Techniques Neuromuscular Re- Yes education Therapeutic Yes Activities to Return to Previous Functional/Work Level Gait Training Yes ADL/Self Care Yes Education Thermal Modalities Yes Electrical Yes Stimulation Ultrasound/ Yes Phonophoresis Iontophoresis Yes Orthotics/Bracing/ Yes Splinting Vasopneumatic Yes Compression Pump Massage Yes Eval/Re-Eval Yes Frequency Times per week 1-2x Duration Number of Weeks 6-8 weeks Addendums This patient is a No candidate for social or vocational rehab ? Patient/Guardian Yes verbally acknowledges understanding of treatment program and consents to further treatment? Patient/Guardian Yes verbally acknowledges understanding of diagnosis, prognosis and goals for treatment? Eval Complexity PT Charges 27623 - Moderate Complexity Shoulder/Elbow Eval Shoulder Objective Measurements Elbow Objective Measurements PHYSICIAN CERTIFICATION: I certify the specified therapy services for Kraig Guo are required, authorized, and reviewed every 30 days.
== END 2025-02-14 23:59 | disposition home or self-care (01) ==
LOC: PT 12:42
PROVIDERS: PCP Family Medicine; Visit Provider Family Medicine
DX: S83.512A Sprain of anterior cruciate ligament of left knee, initial encounter (principal); X58.XXXA Exposure to other specified factors, initial encounter
CPT/HCPCS: 97162